=== PATIENT | female | born 1995 | race Caucasian/White ===

== ENCOUNTER 2017-08-05 12:11 | Emergency (ER) | payer OTHER ==
[~2017-08-05] VITALS: Ht 167.6 cm; Wt 50.0 kg
[2017-08-05 12:19] VITALS: BP 117/65; TEMP 98.1
[2017-08-05] MEDS ORDERED: KEPPRA750 MG PO (13:05)
[2017-08-05] MEDS ORDERED: CONSTULOSE 20G/30ML PO (13:36)
[2017-08-05 13:47] VITALS: PULSE 90
== END 2017-08-05 13:48 | disposition home or self-care (01) ==
LOC: COL.ER 12:11
DX: K59.00 Constipation, unspecified (principal); G40.909 Epilepsy, unspecified, not intractable, without status epilepticus